=== PATIENT | female | born 1935 | race Caucasian/White ===

== ENCOUNTER 2021-05-25 22:20 | Emergency (ER) | payer MEDICARE, BC ==
[2021-05-26 00:49] LABS: HEMOGLOBIN 11.6 gm/dl (12.3-15.3); RED BLOOD COUNT 4.01 M/UL (4.00-5.10); WHITE BLOOD COUNT 7.5 K/UL (4.5-11.0)
[2021-05-26 01:01] LABS: BUN/CREATININE RATIO 9 (0-10)
== END 2021-05-26 02:26 | disposition home or self-care (01) ==
LOC: ER1 22:20
PROVIDERS: Family Medicine
DX: J96.11 Chronic respiratory failure with hypoxia (principal); Z99.81 Dependence on supplemental oxygen; J98.09 Other diseases of bronchus, not elsewhere classified; Z95.0 Presence of cardiac pacemaker
CPT/HCPCS: 71045; 80048; 82550; 82553; 83874; 83880; 84439; 84443; 84484; 85025; 85610; 93005; 96374; 99285; J1642

== ENCOUNTER → 2021-10-19 | Outpatient (CLI) | payer MEDICARE, BC | LOC: HEART 5 10-16 08:30 | DX: Z01.810 Encounter for preprocedural cardiovascular examination (principal); R94.31 Abnormal electrocardiogram [ECG] [EKG] | CPT/HCPCS: 78452; A9502; J2785 ==